=== PATIENT | male | born 1965 | race Two or more races ===

== ENCOUNTER 2021-06-25 14:40 | Emergency (ER) | payer OTHER, SELFPAY ==
[2021-06-25 14:49] VITALS: BP 116/83
--- NOTE | 2021-06-25 14:57 | NUR ---
SAP BASIS: PT GIVEN URINE CUP AND INSTRUCTED ON CLEAN CATCH URINE COLLECTION. PT TO BR TO ATTEMPT URINE SAMPLE
[2021-06-25] MEDS ORDERED: ACETAMINOPHEN 500 MG TABLET ONE (15:50)
[2021-06-25] MEDS ORDERED: ACETAMINOPHEN 500 MG TABLET PO ONE (16:00)
[2021-06-25 16:04] LABS: MICROSCOPIC NOT IND
== END 2021-06-25 17:35 | disposition home or self-care (01) ==
LOC: ED 17:04
DX: S39.012A Strain of muscle, fascia and tendon of lower back, initial encounter (principal); X50.0XXA Overexertion from strenuous movement or load, initial encounter; Y93.89 Activity, other specified; Y92.69 Other specified industrial and construction area as the place of occurrence of the external cause; Y99.8 Other external cause status
CPT/HCPCS: 81003; 99283